=== PATIENT | male | born 1990 | race Caucasian/White ===

== ENCOUNTER 2020-09-20 10:11 | Outpatient (REF) | payer OTHER, SELFPAY | END 2020-09-20 10:12 | disposition home or self-care (01) | LOC: HO.LAB 10:11 | PROVIDERS: Visit Provider Internal Medicine | DX: Z20.828 Contact with and (suspected) exposure to other viral communicable diseases (principal) | CPT/HCPCS: C9803; U0003 ==

== ENCOUNTER 2021-12-21 16:49 | Outpatient (REF) | payer OTHER, SELFPAY | END 2021-12-21 16:50 | disposition home or self-care (01) | LOC: HO.LNP 16:49 | PROVIDERS: Visit Provider Physician Assistant | DX: Z13.89 Encounter for screening for other disorder (principal) ==

== ENCOUNTER 2022-08-31 09:26 | Outpatient (REF) | payer OTHER, SELFPAY ==
[2022-08-31 11:07] LABS: MANUAL DIFF FLAG NO
[2022-08-31 11:17] LABS: Appearance Urine Clear; Color Urine Yellow; Glucose Urine UA Negative (Negative); Leukocyte Esterase Urine Negative (Negative); Nitrite Urine Negative (Negative); PH 6.5 (5.0-9.0); Urine Blood Negative (Negative); Urine Ketones Negative (Negative); Urine Protein Negative (Neg-Trace)
[2022-08-31 11:29] LABS: Basophils Percent Auto 0.3 % (0-2); Eosinophils Absolute Auto 0.1 X10*3/uL (0.0-0.4); Eosinophils Percent Auto 1.3 % (0-4); Hematocrit 45.4 % (42.0-52.0); Hemoglobin 15.8 g/dl (14.0-18.0); Imm Gran Abs Auto 0.02 X10*3/uL (0.00-0.03); Imm Gran Pct Auto 0.3 % (0.0-0.4); Lymphocytes Absolute Auto 1.5 X10*3/uL (1.2-4.9); Lymphocytes Percent Auto 23.8 % (20-40); Mean Corpuscular HGB Conc 34.8 g/dl (31.0-36.0); Mean Corpuscular Hemoglobin 30.2 pg (27.0-33.0); Mean Corpuscular Volume 86.6 fL (80.0-98.0); Mean Platelet Volume 10.3 fL (9.4-12.4); Monocytes Absolute Auto 0.7 X10*3/uL (0.1-1.2); Monocytes Percent Auto 11.7 % (2-11); Neutrophils Absolute Auto 3.8 x10*3/uL (2.0-8.3); Neutrophils Percent Auto 62.6 % (45-73); Platelet Count 245 X10*3/uL (160-400); Red Blood Count 5.24 X10*6/uL (4.60-5.80); White Blood Count 6.1 X10*3/uL (4.8-10.8)
[2022-08-31 12:03] LABS: Alanine Aminotransferase 22 U/L (0-40); Albumin Level 4.7 g/dL (3.5-5.0); Alkaline Phosphatase 82 U/L (39-117); Anion Gap 13 (12-20); Aspartate Amino Transferase 21 U/L (5-37); Bilirubin Total 0.7 mg/dL (0.0-1.0); Blood Urea Nitrogen 19 mg/dL (9-16); Calcium 9.5 mg/dL (8.4-10.2); Carbon Dioxide 25 mmol/L (22-29); Chloride 103 mmol/L (96-108); Cholesterol 205 mg/dL; Estimated Glomerular Filt Rate > 60; Glucose Fasting 109 mg/dL (60-99); HDL Cholesterol 42 mg/dL; LDL Cholesterol Calculated 142 mg/dl; Potassium 4.2 mmol/L (3.3-5.1); Sodium 137 mmol/L (135-145); TSH reflex Free T4 2.62 uIU/mL (0.32-4.0); Triglycerides 109 mg/dL
== END 2022-08-31 09:27 | disposition home or self-care (01) ==
LOC: HO.HMGCLDS 09:26
PROVIDERS: PCP Nurse Practitioner Family; Visit Provider Nurse Practitioner Family
DX: Z00.00 Encounter for general adult medical examination without abnormal findings (principal)
CPT/HCPCS: 36415; 80053; 80061; 81003; 84443; 85025

== ENCOUNTER 2023-06-07 10:48 | Outpatient (AMB) | payer OTHER, SELFPAY ==
[2023-06-07 10:56] VITALS: BP 130/88; PULSE 75; O2SAT 100; BMI 23.1
--- NOTE | 2023-06-07 10:56 | A.OFFPC_ITS ---
Vital Signs 06/07/23 10:56 Height 6 ft Weight 170 lb 4 oz BMI 23.1 BP 130/88 Blood Pressure Location Rt brachial Position Sitting Pulse 75 Pulse Source Pulse Oximeter Pulse Oximetry (%) 100 Oxygen Delivery Method Room Air Intake Visit Reasons: Physical Allergies No Known Allergies Allergy (Unverified 06/07/23 10:58) Medication List - Last Reconciled 06/07/23 by ALTHEA Gleason pantoprazole 40 mg PO DAILY sertraline 50 mg PO DAILY Tobacco use date assessed: 06/07/23 Dental Screening Dental Screen Date: 06/07/23 Did you have a dental visit in the last 12 months?: Yes Did you have a dental problem in the last 6 months where you did not have access to dental care?: No Was dental information given to patient?: Patient has dentist HPI Physical HPI Details Pt is here for a PE. Will order labs. pt has a therapist and a psychiatrist, 3 weeks ago started on sertraline 50mg. Pt was having nausea, but is no longer, and he is starting to notice a Positive difference with use of med, denies any SI or HI. [facility] Social History Housing: House Alcohol intake: current Alcohol intake frequency: a few times a week Patient Tobacco Use Status: Never used Tobacco e-Cigarette/Vaping Use: Never Used service: No Current occupational status: employed Cognitive needs: No Hearing needs: No Vision needs: No Review of Systems Const Denies chills and Denies fever(s) Eyes Denies blurry vision ENT Denies vertigo, Denies dizziness and Denies sore throat Card Denies chest pain at rest, Denies chest pain with activity, Denies diaphoresis, Denies dyspnea and Denies dyspnea on exertion Resp Denies cough, Denies dyspnea, Denies dyspnea on exertion and Denies wheezing GI Denies abdominal pain, Denies melena, Denies hematochezia, Denies constipation, Denies diarrhea and Denies loose stools Denies hematuria Musc Denies numbness and Denies tingling Skin/Breast Denies lesions Neuro Denies vertigo, Denies dizziness, Denies numbness and Denies tingling Psych Denies anxiety, Denies depression, Denies homicidal ideation, Denies suicidal ideation and Denies other (substance abuse) Aller/Immun Denies wheezing Physical exam (Primary Care) Vital Signs: Last Vital Signs Pulse 75 06/07/23 10:56 BP 130/88 06/07/23 10:56 Pulse Ox 100 06/07/23 10:56 Oxygen Delivery Method Room Air 06/07/23 10:56 BMI result Body Mass Index 23.1 Tobacco/Smoking Status: Tobacco use Status Tobacco use date assessed 06/07/23 06/07/23 10:59 Patient Tobacco Use Status Never used Tobacco 06/07/23 10:59 e-Cigarette/Vaping Use Never Used 06/07/23 10:59 Const General: cooperative Nutritional Appearance: well nourished Orientation/consciousness: patient oriented x3 HENMT Head: Yes normal to inspection, Yes normocephalic and Yes atraumatic Ears: TM's normal bilaterally Eyes General: appearance normal, both eyes and all related structures Alignment and Position: alignment normal and position normal Neck Neck: Yes normal visual inspection and Yes no lymphadenopathy Thyroid: Thyroid normal Resp Effort & Inspection: normal respiratory effort Auscultation: clear to auscultation bilaterally Cardio Rate: regular rate Rhythm: regular rhythm Heart sounds: S1 normal heart sound present, S2 normal heart sound present and no murmurs GI Palpation (GI): Soft to palpation and nontender Auscultation: normal bowel sounds Male General Exam: Yes normal external exam Penis: normal penis Scrotum: scrotum normal, testes descended bilaterally and no inguinal hernias Testes: no testicular mass Skin Rashes: no rashes Neuro General: patient oriented x3, moves all extremities, no focal motor deficits and deep tendon reflexes 2+ bilaterally Romberg Test: Negative Psych Appearance: grossly normal Mental Status: mental status grossly normal Speech and movement: Normal speech and movement present Affect: normal affect Attitude: cooperative Thought process: Normal thought process present Thought content: Normal thought content present Insight: Good insight present (Psych) Judgement: Good judgement present (Psych) Assessment and Plan Assessment & Plan (1) Physical exam: Code(s): Z00.00 - Encounter for general adult medical examination without abnormal findings Plan: Labs ordered (2) Anxiety with depression: Code(s): F41.8 - Other specified anxiety disorders Plan The patient agreed to the use of a biomedical equipment specialist for this encounter. Scribed for MIREYA Arellano- by Fanta Dupont, biomedical equipment specialist, on 06/07/2023 at 11:05 EST. Coding Level of Care Code Est Pt Prev Care 18-39y(92737) Diagnoses Physical exam Z00.00 Anxiety with depression F41.8
== END 2023-06-07 12:41 | disposition home or self-care (01) ==
PROVIDERS: PCP Nurse Practitioner Family; Visit Provider Nurse Practitioner Family
DX: Z00.00 Encounter for general adult medical examination without abnormal findings (principal); F41.8 Other specified anxiety disorders
CPT/HCPCS: 99395

== ENCOUNTER 2023-12-13 08:25 | Outpatient (AMB) | payer OTHER, SELFPAY ==
[2023-12-13 08:32] VITALS: BP 130/88; PULSE 72; O2SAT 99; BMI 24.3
--- NOTE | 2023-12-13 08:32 | A.OFFPC_ITS ---
Vital Signs 12/13/23 08:32 Height 6 ft Weight 179 lb 6 oz BMI 24.3 BP 130/88 Blood Pressure Location Rt brachial Position Sitting Pulse 72 Pulse Source Pulse Oximeter Pulse Oximetry (%) 99 Oxygen Delivery Method Room Air Intake Visit Reasons: 6 month fu Intake Note: Pt is here to follow for his lipids and anxiety and depression Allergies No Known Allergies Allergy (Unverified 12/13/23 08:34) Medication List - Last Reconciled 12/13/23 by ALTHEA Gleason diazepam 5 mg PO ONCE PRN pantoprazole 40 mg PO DAILY Tobacco use date assessed: 12/13/23 Dental Screening Dental Screen Date: 12/13/23 Did you have a dental visit in the last 12 months?: Yes Did you have a dental problem in the last 6 months where you did not have access to dental care?: No Was dental information given to patient?: Patient has dentist HPI 6 month fu HPI Details Anxiety/depression: Pt reports stopping his sertraline approximately 3 months ago. He is seeing a therapist biweekly and a psychiatrist. Pt reports that he is able to manage his anxiety and depression. Pt has a phobia of needles and needs labs done in the near future. Will send one dose of diazepam. Educated pt on risk of addiction, this is not a long-term med. Pt understands that they can not drive while taking this med, share this med, and to only take as prescribed. Denies any SI and HI. Hx of dyslipidemia. Will order labs. [facility] Medical History (Updated 12/13/23 @ 08:59 by ALTHEA Gleason) Needle phobia Social History Housing: House Alcohol intake: current Alcohol intake frequency: a few times a week Patient Tobacco Use Status: Never used Tobacco e-Cigarette/Vaping Use: Never Used service: No Current occupational status: employed Cognitive needs: No Hearing needs: No Vision needs: No Questionnaire PHQ-9 Over the last 2 weeks, how often have you been bothered by any of the following problems? 1. Little interest or pleasure in doing things: not at all 2. Feeling down, depressed, or hopeless: not at all 3. Trouble falling or staying asleep, or sleeping too much: not at all 4. Feeling tired or having little energy: not at all 5. Poor appetite or overeating: not at all 6. Feeling bad about yourself - or that you are a failure or have let yourself or your family down: not at all 7. Trouble concentrating on things, such as reading the newspaper or watching television: not at all 8. Moving or speaking so slowly that other people could have noticed. Or the opposite - being so fidgety or restless that you have been moving around a lot more than usual: not at all 9. Thoughts that you would be better off or of hurting yourself in some way: not at all Total score: 0 Source: Developed by Drs. Axel Lovett, Bernadette Cadet, Yonas Williamson and colleagues, with an educational cristian from [employer]. Thrive Questionnaire Date Thrive assessed: 12/13/23 I am a: Patient What is your living situation today?: I have a steady place to live Within the past 12 months, did the food you bought not last and you didn't have the money to get more?: Never true Within the past 12 months, did you worry whether your food would run out before you got money to buy more?: Never true Do you have trouble paying for medicines?: No Do you have trouble getting transportation to medical appointments?: No Do you have trouble paying your heating and electricity bill?: No Do you have trouble taking care of your child, family member or friend?: No Do you have trouble with day-to-day activities such as bathing, preparing meals, shopping, managing finances, etc.?: No Are you currently unemployed and looking for a job?: No Are you interested in more education?: No THRIVE Score: 0 OSIRIS-7 AMB Questionnaire OSIRIS-7 Date OSIRIS - 7 assessed: 12/13/23 Feeling nervous, anxious, or on edge: 1 = Several days Not being able to stop or control worryin = Not at all Worrying too much about different things: 0 = Not at all Trouble relaxin = Nearly every day Being so restless that it is hard to sit still: 1 = Several days Becoming easily annoyed or irritable: 1 = Several days Feeling afraid as if something awful might happen: 0 = Not at all Total OSIRIS-7 score (0-4 normal; 5-9 mild; 10-14 moderate; 15-21 severe): 6 Source: Developed by Drs. Axel Lovett, Bernadette Cadet, Yonas Williamson and colleagues, with an educational cristian from [employer]. Review of Systems Const Reports as per HPI Physical exam (Primary Care) Vital Signs: Last Vital Signs Pulse 72 12/13/23 08:32 BP 130/88 12/13/23 08:32 Pulse Ox 99 12/13/23 08:32 Oxygen Delivery Method Room Air 12/13/23 08:32 BMI result Body Mass Index 24.3 Tobacco/Smoking Status: Tobacco use Status Tobacco use date assessed 12/13/23 12/13/23 08:37 Patient Tobacco Use Status Never used Tobacco 12/13/23 08:37 e-Cigarette/Vaping Use Never Used 12/13/23 08:37 Const General: cooperative Orientation/consciousness: patient oriented x3 Resp Effort & Inspection: normal respiratory effort Auscultation: clear to auscultation bilaterally Cardio Rate: regular rate Rhythm: regular rhythm Heart sounds: S1 normal heart sound present and S2 normal heart sound present Neuro General: patient oriented x3 Psych Appearance: grossly normal Mental Status: mental status grossly normal Speech and movement: Normal speech and movement present Affect: normal affect Attitude: cooperative Thought process: Normal thought process present Thought content: Normal thought content present Insight: Good insight present (Psych) Judgement: Good judgement present (Psych) Assessment and Plan Assessment & Plan (1) Dyslipidemia: Code(s): E78.5 - Hyperlipidemia, unspecified Plan: Labs ordered (2) Anxiety with depression: Code(s): F41.8 - Other specified anxiety disorders Plan: Labs ordered, continue seeing therapist and psychiatrist (3) Needle phobia: Code(s): F40.298 - Other specified phobia Plan: diazepam is UTD Plan The patient agreed to the use of a medical device sales consultant for this encounter. Scribed for ALTHEA Arellano by Fanta Dupont medical device sales consultant, on 12/13/2023 at 08:40 EST. Orders: Orders UA CC w/rflx Micro + Cult Today E78.5 - Hyperlipidemia, unspecified, F41.8 - Other specified anxiety disorders Lipid Panel Today E78.5 - Hyperlipidemia, unspecified, F41.8 - Other specified anxiety disorders Complete Blood Count Auto Diff Today E78.5 - Hyperlipidemia, unspecified, F41.8 - Other specified anxiety disorders Comprehensive [place]. Panel Fast Today E78.5 - Hyperlipidemia, unspecified, F41.8 - Other specified anxiety disorders TSH reflex Free T4 Today E78.5 - Hyperlipidemia, unspecified, F41.8 - Other specified anxiety disorders Medications: New diazepam cannot drive while on med 5 mg PO ONCE PRN 1 tab 0RF anxiety Refilled pantoprazole 40 mg PO DAILY 90 tabs 3RF Coding Level of Care Code Est Pt Level 3 (59628) Diagnoses Dyslipidemia E78.5 Anxiety with depression F41.8 Needle phobia F40.298
== END 2023-12-13 11:47 | disposition home or self-care (01) ==
PROVIDERS: PCP Nurse Practitioner Family; Visit Provider Nurse Practitioner Family
DX: E78.5 Hyperlipidemia, unspecified (principal); F41.8 Other specified anxiety disorders; F40.298 Other specified phobia
CPT/HCPCS: 99213

== ENCOUNTER 2024-06-18 10:59 | Outpatient (AMB) | payer OTHER, SELFPAY ==
--- NOTE | 2024-06-18 11:05 | MHC.PC.OV ---
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 Labs were already ordered, encouraged pt to have these drawn. PFSH Medical History Needle phobia Social History Housing: House Alcohol intake: current Alcohol intake frequency: a few times a week Patient Tobacco Use Status: Never used Tobacco e-Cigarette/Vaping Use: Never Used service: No Current occupational status: employed Cognitive needs: No Hearing needs: No Vision needs: No Questionnaire PHQ-9 Over the last 2 weeks, how often have you been bothered by any of the following problems? 1. Little interest or pleasure in doing things: not at all 2. Feeling down, depressed, or hopeless: not at all 3. Trouble falling or staying asleep, or sleeping too much: not at all 4. Feeling tired or having little energy: not at all 5. Poor appetite or overeating: not at all 6. Feeling bad about yourself - or that you are a failure or have let yourself or your family down: not at all 7. Trouble concentrating on things, such as reading the newspaper or watching television: not at all 8. Moving or speaking so slowly that other people could have noticed. Or the opposite - being so fidgety or restless that you have been moving around a lot more than usual: not at all 9. Thoughts that you would be better off or of hurting yourself in some way: not at all Total score: 0 Depression Screening Interpretation: Negative Depression Screening Done: Yes 26834 - PHQ-9 Billing: Yes Source: Developed by Drs. Axel Lovett, Bernadette Cadet, Yonas Williamson and colleagues, with an educational cristian from [employer]. Thrive Questionnaire Date Thrive assessed: 06/18/24 I am a: Patient What is your living situation today?: I have a steady place to live Within the past 12 months, did the food you bought not last and you didn't have the money to get more?: Never true Within the past 12 months, did you worry whether your food would run out before you got money to buy more?: Never true Do you have trouble paying for medicines?: No Do you have trouble getting transportation to medical appointments?: No Do you have trouble paying your heating and electricity bill?: No Do you have trouble taking care of your child, family member or friend?: No Do you have trouble with day-to-day activities such as bathing, preparing meals, shopping, managing finances, etc.?: No Are you currently unemployed and looking for a job?: No Are you interested in more education?: No Please select the resources that you would like help with: None Currently or been in a relationship where the following occur: No concerns reported THRIVE Score: 0 AUDIT C Alcohol Use Questionnaire (AUDIT-C) 1. How often do you have a drink containing alcohol?: 2-3 times a week 2. How many drinks containing alcohol do you have on a typical day when you are drinking?: 1 or 2 3. How often do you have six or more drinks on one occasion?: Monthly Total Score: 5 Score Reviewed/Action Taken: Yes OSIRIS-7 AMB Questionnaire OSIRIS-7 Date OSIRIS - 7 assessed: 06/18/24 Feeling nervous, anxious, or on edge: 3 = Nearly every day Not being able to stop or control worryin = More than half the days Worrying too much about different things: 3 = Nearly every day Trouble relaxin = Nearly every day Being so restless that it is hard to sit still: 2 = More than half the days Becoming easily annoyed or irritable: 3 = Nearly every day Feeling afraid as if something awful might happen: 0 = Not at all Total OSIRIS-7 score (0-4 normal; 5-9 mild; 10-14 moderate; 15-21 severe): 16 Source: Developed by Drs. Axel Lovett, Bernadette Cadet, Yonas Williamson and colleagues, with an educational cristian from [employer]. OSIRIS-7 Assessment Billing OSIRIS-7 Assessment Tool: OSIRIS-7 Assessment 23108 Review of Systems Const Denies chills and Denies fever(s) Eyes Denies blurry vision ENT Denies vertigo, Denies dizziness and Denies sore throat Card Denies chest pain at rest, Denies chest pain with activity, Denies diaphoresis, Denies dyspnea and Denies dyspnea on exertion Resp Denies cough, Denies dyspnea, Denies dyspnea on exertion and Denies wheezing GI Denies abdominal pain, Denies melena, Denies hematochezia, Denies constipation, Denies diarrhea and Denies loose stools Denies hematuria Musc Denies numbness and Denies tingling Skin/Breast Denies lesions Neuro Denies vertigo, Denies dizziness, Denies numbness and Denies tingling Psych Denies anxiety, Denies depression, Denies homicidal ideation, Denies suicidal ideation and Denies other (substance abuse) Aller/Immun Denies wheezing Physical exam (Primary Care) Vital Signs: Last Vital Signs Pulse 74 06/18/24 11:07 BP 132/80 06/18/24 11:07 Pulse Ox 97 06/18/24 11:07 Oxygen Delivery Method Room Air 06/18/24 11:07 BMI result Body Mass Index 24.5 Tobacco/Smoking Status: Tobacco use Status Tobacco use date assessed 12/13/23 06/18/24 11:06 Patient Tobacco Use Status Never used Tobacco 06/18/24 11:06 e-Cigarette/Vaping Use Never Used 06/18/24 11:06 PHQ-9: PHQ-9 Score PHQ-9: Total score 0 06/18/24 11:16 Depression Screening Interpretation: Negative Thrive Assessment: Date of Thrive Assessment Date Thrive assessed 06/18/24 06/18/24 11:10 Currently or been in a relationship where the following occur: No concerns reported Const General: cooperative Nutritional Appearance: well nourished Orientation/consciousness: patient oriented x3 HENMT Head: Yes normal to inspection, Yes normocephalic and Yes atraumatic Ears: TM's normal bilaterally Eyes General: appearance normal, both eyes and all related structures Alignment and Position: alignment normal and position normal Neck Neck: Yes normal visual inspection, Yes no lymphadenopathy and Yes supple Resp Effort & Inspection: normal respiratory effort Auscultation: clear to auscultation bilaterally Cardio Rate: regular rate Rhythm: regular rhythm Heart sounds: S1 normal heart sound present, S2 normal heart sound present and no murmurs GI Palpation (GI): Soft to palpation and nontender Auscultation: normal bowel sounds Male General Exam: Yes normal external exam Penis: normal penis Scrotum: scrotum normal, testes descended bilaterally and no inguinal hernias Testes: no testicular mass Skin Rashes: no rashes Neuro General: patient oriented x3, moves all extremities, no focal motor deficits and deep tendon reflexes 2+ bilaterally Romberg Test: Negative Psych Appearance: grossly normal Mental Status: mental status grossly normal Speech and movement: Normal speech and movement present Affect: normal affect Attitude: cooperative Thought process: Normal thought process present Thought content: Normal thought content present Insight: Good insight present (Psych) Judgement: Good judgement present (Psych) Assessment and Plan Assessment & Plan (1) Physical exam: Code(s): Z00.00 - Encounter for general adult medical examination without abnormal findings Plan: encouraged labs Plan The patient agreed to the use of a medical territory manager for this encounter. Scribed for ALTHEA Arellano by Fanta Dupont medical territory manager, on 06/18/2024 at 11:15 EST. Coding Level of Care Code Est Pt Prev Care 18-39y(84806) Diagnoses Physical exam Z00.00 Additional Codes OSIRIS-7 Assessment Billing - OSIRIS-7 Assessment Tool: OSIRIS-7 Assessment 15053 ([id number])
[2024-06-18 11:07] VITALS: BP 132/80; PULSE 74; O2SAT 97; BMI 24.5
== END 2024-06-18 11:25 | disposition home or self-care (01) ==
PROVIDERS: PCP Nurse Practitioner Family; Visit Provider Nurse Practitioner Family
DX: Z00.00 Encounter for general adult medical examination without abnormal findings (principal)
CPT/HCPCS: 99395

== ENCOUNTER 2024-12-15 11:19 | Outpatient (AMB) | payer OTHER, SELFPAY ==
--- NOTE | 2024-12-15 11:24 | A.OFFPC_ITS ---
Vital Signs 12/15/24 11:25 Height 6 ft Weight 185 lb 3 oz BMI 25.1 BP 126/80 Blood Pressure Location Lt brachial Position Sitting Respiration 17 Pulse 76 Pulse Source Pulse Oximeter Temp 98.1 F Temp Source Oral Pulse Oximetry (%) 98 Oxygen Delivery Method Room Air Intake Visit Reasons: 6 month follow up Allergies No Known Allergies Allergy (Verified 12/15/24 11:35) Medication List - Last Reconciled 12/15/24 by MIREYA Gleason- pantoprazole 40 mg PO DAILY Tobacco use date assessed: 12/15/24 Dental Screening Dental Screen Date: 12/15/24 Did you have a dental visit in the last 12 months?: Yes Did you have a dental problem in the last 6 months where you did not have access to dental care?: No Was dental information given to patient?: Patient has dentist HPI 6 month follow up HPI0 Details Chief Complaint The patient presents for follow-up regarding management of dyslipidemia, anxiety, and depression. History of Present Illness The patient is a 34-year-old male presenting for follow-up of dyslipidemia, anxiety, and depression. He reports doing quite well with regular sessions with a therapist, resulting in positive progress. There are no additional medications being taken for these conditions. Recently, the patient has experienced increased stress due to work and personal life events, including recent deaths in the family and his father's recent cancer diagnosis. Despite these stressors, he is managing his mental health without any suicidal or homicidal ideations. The patient reports some sleep disturbances likely associated with stress. A routine blood work-up is planned to assess his dyslipidemia further. His mental health conditions, specifically anxiety and depression, are stable with the current therapeutic approach. Social History - Reports stress at work. - Experienced recent family deaths. - Father recently diagnosed with cancer. Health Maintenance - Continue therapy sessions for mental h ealth stability. - Plan for routine blood work to monitor dyslipidemia. Review of Systems - Psychiatric: Reports stress and sleep disturbances. Denies suicidal or homicidal thoughts. -denies any CP, SOB, N/V, dizziness, susannah rred vision Physical Exam General: Cooperative, healthy appearing, comfortable, no acute distress and well developed Orientation: Patient oriented x3 Limitations: No limitations Head: Normal to inspection Ears: Hearing grossly normal bilaterally Nose: Normal external nose present Face and sinus: Normal facial exam Eyes: Appearance normal, both eyes and all related structures Neck: Normal visual inspection and Yes full ROM Respiratory: Normal respiratory effort and able to speak in complete sentences. Clear to auscultation bilaterally Cardiovascular: Regular rate and rhythm. Normal S1 and S2 GI: Normal to inspection. Soft to palpation and nontender Skin: No rashes or lesions noted Neuro: Patient oriented x3 Extremities: Normal to inspection Results Plan - Encourage continued therapy for anxiet y and depression. - Plan for routine blood tests to monito r and manage dyslipidemia. - Monitor stress levels related to recen t personal events and work. Discussion Notes During the visit, we discussed the patient's progress in managing anxiety and depression with regular therapy sessions, which he reports are going well. We addressed his dyslipidemia, and I emphasized the importance of getting his blood work done soon to assess his current status. We talked about recent stressors affecting his life, including work-related stress and family issues, but I reassured the patient of his good overall management thus far. We discussed that he would follow up in six months but should contact me sooner if there were any changes in his mental health status. Patient Instructions - Continue with current therapy sessions and report any changes in symptoms. - Obtain scheduled blood work for dyslip idemia monitoring. - Manage stress through recommended copi ng strategies and reach out if mental health symptoms worsen or change. [facility] Medical History Needle phobia Social History Housing: House Alcohol intake: current Alcohol intake frequency: a few times a week Patient Tobacco Use Status: Never used Tobacco e-Cigarette/Vaping Use: Never Used service: No Current occupational status: employed Cognitive needs: No Hearing needs: No Vision needs: No Questionnaire PHQ-9 Over the last 2 weeks, how often have you been bothered by any of the following problems? 1. Little interest or pleasure in doing things: not at all 2. Feeling down, depressed, or hopeless: not at all 3. Trouble falling or staying asleep, or sleeping too much: not at all 4. Feeling tired or having little energy: not at all 5. Poor appetite or overeating: not at all 6. Feeling bad about yourself - or that you are a failure or have let yourself or your family down: not at all 7. Trouble concentrating on things, such as reading the newspaper or watching television: not at all 8. Moving or speaking so slowly that other people could have noticed. Or the opposite - being so fidgety or restless that you have been moving around a lot more than usual: not at all 9. Thoughts that you would be better off or of hurting yourself in some way: not at all Total score: 0 Depression Screening Interpretation: Negative Depression Screening Done: Yes 38823 - PHQ-9 Billing: Yes Source: Developed by Drs. Axel Lovett, Bernadette Cadet, Yonas Williamson and colleagues, with an educational cristian from [employer]. Thrive Questionnaire Date Thrive assessed: 12/15/24 I am a: Patient What is your living situation today?: I have a steady place to live Within the past 12 months, did the food you bought not last and you didn't have the money to get more?: Never true Within the past 12 months, did you worry whether your food would run out before you got money to buy more?: Never true Do you have trouble paying for medicines?: No Do you have trouble getting transportation to medical appointments?: No Do you have trouble paying your heating and electricity bill?: No Do you have trouble taking care of your child, family member or friend?: No Do you have trouble with day-to-day activities such as bathing, preparing meals, shopping, managing finances, etc.?: No Are you currently unemployed and looking for a job?: No Are you interested in more education?: Yes Please select the resources that you would like help with: None Currently or been in a relationship where the following occur: No concerns reported THRIVE Score: 0 AUDIT C Alcohol Use Questionnaire (AUDIT-C) 1. How often do you have a drink containing alcohol?: 4 or more times a week 2. How many drinks containing alcohol do you have on a typical day when you are drinking?: 1 or 2 3. How often do you have six or more drinks on one occasion?: Less than monthly Total Score: 5 Score Reviewed/Action Taken: Yes OSIRIS-7 AMB Questionnaire OSIRIS-7 Date OSIRIS - 7 assessed: 12/15/24 Feeling nervous, anxious, or on edge: 3 = Nearly every day Not being able to stop or control worryin = Several days Worrying too much about different things: 1 = Several days Trouble relaxin = Nearly every day Being so restless that it is hard to sit still: 0 = Not at all Becoming easily annoyed or irritable: 0 = Not at all Feeling afraid as if something awful might happen: 0 = Not at all Total OSIRIS-7 score (0-4 normal; 5-9 mild; 10-14 moderate; 15-21 severe): 8 Source: Developed by Drs. Axel Lovett, Bernadette Cadet, Yonas Williamson and colleagues, with an educational cristian from [employer]. OSIRIS-7 Assessment Billing OSIRIS-7 Assessment Tool: OSIRIS-7 Assessment 41514 Physical exam (Primary Care) Vital Signs: Last Vital Signs Temp 98.1 F 12/15/24 11:25 Pulse 76 12/15/24 11:25 Resp 17 12/15/24 11:25 BP 126/80 12/15/24 11:25 Pulse Ox 98 12/15/24 11:25 Oxygen Delivery Method Room Air 12/15/24 11:25 BMI result Body Mass Index 25.1 Tobacco/Smoking Status: Tobacco use Status Tobacco use date assessed 12/15/24 12/15/24 11:36 Patient Tobacco Use Status Never used Tobacco 12/15/24 11:36 e-Cigarette/Vaping Use Never Used 12/15/24 11:36 PHQ-9: PHQ-9 Score PHQ-9: Total score 0 12/15/24 11:36 Depression Screening Interpretation: Negative Thrive Assessment: Date of Thrive Assessment Date Thrive assessed 12/15/24 12/15/24 11:36 Currently or been in a relationship where the following occur: No concerns reported Coding Level of Care Code Est Pt Level 3 (76191) Diagnoses Dyslipidemia E78.5 Additional Codes OSIRIS-7 Assessment Billing - OSIRIS-7 Assessment Tool: OSIRIS-7 Assessment 24476 ([id number]) PHQ-9 - 16717 - PHQ-9 Billing: Yes ([id number]) Assessment & Plan Assessment & Plan (1) Dyslipidemia: Code(s): E78.5 - Hyperlipidemia, unspecified Category: Medical Plan . Orders: Orders Lipid Panel Today E78.5 - Hyperlipidemia, unspecified Complete Blood Count Auto Diff Today E78.5 - Hyperlipidemia, unspecified Comprehensive [place]. Panel Fast Today E78.5 - Hyperlipidemia, unspecified TSH reflex Free T4 Today E78.5 - Hyperlipidemia, unspecified UA CC w/rflx Micro + Cult Today E78.5 - Hyperlipidemia, unspecified
[2024-12-15 11:25] VITALS: BP 126/80; PULSE 76; RESP 17; TEMP 36.7; O2SAT 98; BMI 25.1
--- OUTSIDE RECORDS SUMMARY | 2024-12-15 13:05 | XMS_ITS | Encounter Summary ---
Author Organization [facility] Address [address] [place] [address] Care Team Providers Care Team Physician Name Role Phone Pcp, No Primary Care Provider Unavailabl e Encounter Details Date Type Department Care Team (Late st Contact Info) Description 10/18/2024 Scanned Document [address] [place] [address] [phone] Provider, Generic Social History Tobacco Use Types Packs/Day Years Used Date Smoking Tobacco: Never Smokeless Tobacco: Never Sex and Gender Information Value Date Recorded Sex Assigned at Not on file Gender Identity Not on file Sexual Orientation Not on file documented as of this encounter Plan of Treatment Not on file documented as of this encounter Visit Diagnoses Not on filedocumented in this encounter Care Teams Team Physician Relationship Specialty Start Date End Date Pcp, No PCP - General General Medicine 03/16/23 documented as of this encounter
--- OUTSIDE RECORDS SUMMARY | 2024-12-15 13:05 | XMS_ITS ---
Author Name [facility] Organization Unknown Problems Problem Status Onset Date Problem Type Date of Resoluti on Source Fever and chills active EncounterDiagnosisAct CCT Influenza A active EncounterDiagnosisAct CCT
--- OUTSIDE RECORDS SUMMARY | 2024-12-15 13:05 | XMS_ITS | Clinical Summary ---
Author Organization [facility] Address [address] [place] [id number] Care Team Providers Care Tromper Name Role Phone Pcp, No Primary Care Provider Unavailabl e Allergies No known active allergies Medications Medication Sig Dispensed Refills Start Date End Date Status PANTOprazole (PROTONIX) 40 MG EC tablet Take 40 mg by mouth daily. 01/29/2023 Active tobramycin (TOBREX) 0.3 % ophthalmic solutionIndications:Acu te bacterial conjunctivitis of left eye 1 gtt in affected eye(s) qid x 5 days 5 mL 03/16/2023 Active Active Problems No known active problems Encounters Date Type Department Care Team Description 10/18/2024 10:40 AM EST Office Visit [facility] [address] [place] [address] [place] [address] Reid Buchanan MD de Villier, Daryl, PAJackieC Fever and chills (Primary Dx); Influenza A 10/18/2024 Travel 10/18/2024 Scanned Document [facility] [address] [facility] [address] [place] [phone] Provider, Generic 10/18/2024 Scanned Document [facility] [address] [facility] [address] [place] [phone] Provider, Generic from Last 3 Months Social History Tobacco Use Types Packs/Day Years Used Date Smoking Tobacco: Never Smokeless Tobacco: Never Tobacco Cessation:Counseling Given: Not Answered Sex and Gender Information Value Date Recorded Sex Assigned at Not on file Gender Identity Not on file Sexual Orientation Not on file Last Filed Vital Signs Vital Sign Reading Time Taken Comments Blood Pressure 117/76 10/18/2024 11:13 AM EST Pulse 94 10/18/2024 11:13 AM EST Temperature 37.7 ??C (99.8 ??F) 10/18/2024 11:[address] Respiratory Rate 14 03/16/2023 9:11 AM EDT Oxygen Saturation 99% 10/18/2024 11:13 AM EST Inhaled Oxygen Concentration - - Weight 78.5 kg (173 lb) 03/16/2023 9:11 AM EDT Height 182.9 cm (6') 03/16/2023 9:11 AM EDT Body Mass Index 23.46 03/16/2023 9:11 AM EDT Plan of Treatment Health Maintenance Due Date Last Done Comments Hepatitis C Virus Screening 1991 HIV Screening 2004 DTaP/Tdap/Td Vaccines (1 - Tdap) 2010 Hepatitis B Vaccines (1 of 3 - 19+ 3-dose series) 2010 Influenza Vaccine 05/22/2024 COVID-19 Vaccine (2023-2 5 season) 2024 HPV Vaccines Aged Out No longer eligi ble based on patient's age to complete this topic Pneumococcal Vaccine: Pediat charmaine (0-5 Years) and At-Risk Patients (6 to 49 Years) Aged Out No longer eligible b ased on patient's age to complete this topic Procedures Procedure Name Priority Date/Time Associated Diagnosis Comments POCT RAPID COVID-19 AG (FDA EUA) Routine 10/18/2024 11:29 AM EST Fever and chills POCT RAPID INFLUENZA Routine 10/18/2024 11:29 AM EST Fever and chills from Last 3 Months Results * POCT Rapid COVID-19 Antigen (FDA EUA) (10/18/2024 11:29 AM EST) COVID-19 Rapid Antigen, POC (FDA EUA) Negative Result Comments: A Positive Result does not rule out bacterial infection or co-infection with other viruses. Clinical correlation advised. A Negative Result in symptomatic patients should be considered presumptive and needs confirmation by PCR. Kit Lot Number 0 Strategic Planning Consultant Pass Pass Swab, Nasal Specimen from nose / Unknown 10/18/2024 11:29 AM EST German Sherman-C POINT OF CARE TEST ORDERABLES * (ABNORMAL) POCT Rapid Influenza (10/18/2024 11:29 AM EST) Inflenza A Ag Positive(A) Negative Influenza B Ag Negative Negative Nasopharyngeal 10/18/2024 11 :29 AM EST German Sherman-C POINT OF CARE TEST ORDERABLES from Last 3 Months Care Teams Tromper Relationship Specialty Start Date End Date Pcp, No PCP - General General Medicine 03/16/23
--- OUTSIDE RECORDS SUMMARY | 2024-12-15 13:05 | XMS_ITS | Encounter Summary ---
Author Organization [facility] Address [address] [place] [address] Care Team Providers Care Beater Room Supervisor Name Role Phone Pcp, No Primary Care Provider Unavailabl e Encounter Details Date Type Department Care Team (Late st Contact Info) Description 10/18/2024 Scanned Document [address] [place] [address] [phone] Provider, Generic Social History Tobacco Use Types [...] on filedocumented in this encounter Care Teams Beater Room Supervisor Relationship Specialty Start Date End Date Pcp, No PCP - General General Medicine 03/16/23 documented as of this encounter
== END 2024-12-15 12:10 | disposition home or self-care (01) ==
PROVIDERS: PCP Nurse Practitioner Family; Visit Provider Nurse Practitioner Family
DX: E78.5 Hyperlipidemia, unspecified (principal)

== ENCOUNTER → 2024-12-15 11:19 | Outpatient (BNVA) | payer OTHER, SELFPAY | PROVIDERS: PCP Nurse Practitioner Family; Visit Provider Nurse Practitioner Family | DX: E78.5 Hyperlipidemia, unspecified (principal); F41.9 Anxiety disorder, unspecified; F32.A Depression, unspecified | CPT/HCPCS: 96127 ==

== ENCOUNTER 2024-12-18 09:05 | Outpatient (REF) | payer OTHER, SELFPAY ==
--- OUTSIDE RECORDS SUMMARY | 2024-12-18 09:49 | XMS_ITS | Encounter Summary ---
Author Organization [facility] Address [address] [place] [address] Care Team Providers Care Prototyper Name Role Phone Pcp, No Primary Care Provider Unavailabl e Encounter Details Date Type Department Care Team (Late st Contact Info) Description 10/18/2024 Scanned Document [address] [place] [address] [phone] Provider, Generic Social History Tobacco Use Types [...] on filedocumented in this encounter Care Teams Prototyper Relationship Specialty Start Date End Date Pcp, No PCP - General General Medicine 03/16/23 documented as of this encounter
--- OUTSIDE RECORDS SUMMARY | 2024-12-18 09:49 | XMS_ITS | Encounter Summary ---
Author Organization [facility] Address [address] [place] [address] Care Team Providers Care Mill Manager Name Role Phone Pcp, No Primary Care Provider Unavailabl e Encounter Details Date Type Department Care Team (Late st Contact Info) Description 10/18/2024 Scanned Document [address] [place] [address] [phone] Provider, Generic Social History Tobacco Use Types [...] on filedocumented in this encounter Care Teams Mill Manager Relationship Specialty Start Date End Date Pcp, No PCP - General General Medicine 03/16/23 documented as of this encounter
[2024-12-18 10:05] LABS: MANUAL DIFF FLAG NO
[2024-12-18 10:21] LABS: Basophils Percent Auto 0.5 % (0-2); Eosinophils Absolute Auto 0.2 X10*3/uL (0.0-0.4); Eosinophils Percent Auto 2.6 % (0-4); Hematocrit 45.7 % (42.0-52.0); Hemoglobin 15.9 g/dl (14.0-18.0); Imm Gran Abs Auto 0.01 X10*3/uL (0.00-0.03); Imm Gran Pct Auto 0.1 % (0.0-0.4); Lymphocytes Absolute Auto 1.9 X10*3/uL (1.2-4.9); Lymphocytes Percent Auto 26.2 % (20-40); Mean Corpuscular HGB Conc 34.8 g/dl (31.0-36.0); Mean Corpuscular Hemoglobin 29.8 pg (27.0-33.0); Mean Corpuscular Volume 85.6 fL (80.0-98.0); Mean Platelet Volume 10.1 fL (9.4-12.4); Monocytes Absolute Auto 0.7 X10*3/uL (0.1-1.2); Monocytes Percent Auto 9.3 % (2-11); Neutrophils Absolute Auto 4.5 x10*3/uL (2.0-8.3); Neutrophils Percent Auto 61.3 % (45-73); Platelet Count 267 X10*3/uL (160-400); Red Blood Count 5.34 X10*6/uL (4.60-5.80); Red Cell Distribution Width 12.7 % (11.0-16.0); White Blood Count 7.4 X10*3/uL (4.8-10.8)
[2024-12-18 10:24] LABS: Appearance Urine Clear; Color Urine Yellow; Glucose Urine UA Negative (Negative); Leukocyte Esterase Urine Negative (Negative); Nitrite Urine Negative (Negative); Specific Gravity - Urine <= 1.005 (1.005-1.025); Urine Blood Negative (Negative); Urine Ketones Negative (Negative); Urine Protein Negative (Neg-Trace)
[2024-12-18 11:06] LABS: Albumin Level 4.4 g/dL (3.5-5.0); Alkaline Phosphatase 84 U/L (39-117); Anion Gap 12 (12-20); Aspartate Amino Transferase 29 U/L (5-37); Bilirubin Total 0.6 mg/dL (0.0-1.0); Blood Urea Nitrogen 15 mg/dL (9-16); Calcium 9.4 mg/dL (8.4-10.2); Carbon Dioxide 27 mmol/L (22-29); Chloride 104 mmol/L (96-108); Cholesterol 218 mg/dL (<200); Estimated Glomerular Filt Rate > 60; Glucose Fasting 104 mg/dL (60-99); HDL Cholesterol 36 mg/dL (>40); LDL Cholesterol Calculated 150 mg/dL (<100); Sodium 139 mmol/L (135-145); Total Protein 8.6 g/dL (6.5-8.0); Triglycerides 164 mg/dL (<150)
[2024-12-18 11:14] LABS: Alanine Aminotransferase 37 U/L (0-40)
== END 2024-12-18 09:06 | disposition home or self-care (01) ==
LOC: HO.HMGCLDS 09:05
PROVIDERS: PCP Nurse Practitioner Family; Visit Provider Nurse Practitioner Family
DX: E78.5 Hyperlipidemia, unspecified (principal)
CPT/HCPCS: 36415; 80053; 80061; 81003; 84443; 85025